=== PATIENT | female | born 1970 | race African-American/Black ===

== ENCOUNTER 2021-04-30 23:02 | Emergency (ER) | payer OTHER ==
[2021-04-30 23:13] VITALS: BP 127/78; PULSE 78; TEMP 98.3; BMI 33.9
[2021-04-30] MEDS ORDERED: morphine CARPU-JECT 4 MG/1 ML DISP.SYRIN IVPUSH ONE (23:36)
[2021-04-30] MEDS ORDERED: ONDANSETRON 4 MG/2 ML VIAL IVPUSH ONE (23:36)
[2021-04-30] MEDS ORDERED: LACTATED RINGERS SOLUTION 1000 ML INFUS.BAG IV ONE (23:36)
[2021-04-30] MEDS ORDERED: morphine SULFATE 4 MG/ML VIAL ONE (23:49)
[2021-04-30] MEDS ORDERED: ONDANSETRON 4 MG/2 ML VIAL ONE (23:50)
[2021-04-30 23:54] LABS: BASO % 0.9 % (0-2.0); EOS % 0.4 % (0-4.5); HEMATOCRIT 40.2 % (32.4-45.2); MCH 32.7 pg (25.7-33.7); MCHC 34.9 g/dl (32.0-36.0); MEAN CELL VOLUME 93.6 fl (80-96); MEAN PLT VOLUME 7.1 fl (7.5-11.1); MONO % 7.8 % (3.8-10.2); NEUT % 69.9 % (42.8-82.8); PLATELET COUNT 350 10^3/uL (134-434); RBC 4.29 M/mm3 (3.60-5.2); RDW 12.9 % (11.6-15.6); WHITE BLOOD COUNT 8.2 K/mm3 (4.0-10.0)
[2021-05-01 00:28] LABS: CALCIUM 8.7 mg/dL (8.5-10.1)
[2021-05-01 00:29] LABS: ALBUMIN 3.5 g/dl (3.4-5.0); BLOOD UREA NITROGEN 14.7 mg/dL (7-18); MAGNESIUM 1.7 mg/dL (1.8-2.4)
[2021-05-01 00:32] LABS: CREATININE 1.1 mg/dL (0.55-1.3)
[2021-05-01 00:33] LABS: BILIRUBIN,TOTAL 0.7 mg/dL (0.2-1); TOT PROT 7.4 g/dl (6.4-8.2)
[2021-05-01] MEDS ORDERED: POTASSIUM CHLORIDE TABS 20 MEQ TABLET.ER (FP) PO ONE ×3 (00:40→01:04)
[2021-05-01] MEDS ORDERED: MAGNESIUM SULF 50% (8.12 MEQ/2 ML-1 GM VIAL) IVPB ONE (00:40)
[2021-05-01] MEDS ORDERED: MAGNESIUM 1GM/D5W - 1 GM/100 ML IVPB IVPB ONE (00:56)
[2021-05-01 01:36] LABS: PH,URINE 7.5 (5.0-8.0); URINE APPEARANCE Clear; URINE BILIRUBIN Negative (NEGATIVE); URINE COLOR Yellow; URINE GLUCOSE (UA) Negative (NEGATIVE); URINE KETONE Trace (NEGATIVE); URINE LEUK ESTERASE Negative (NEGATIVE); URINE NITRITE Negative (NEGATIVE); URINE PROTEIN Negative (NEGATIVE); URINE UROBILINOGEN 0.2 mg/dL (0.2-1.0)
[2021-05-01 01:41] LABS: EPI CELLS 11.2 /uL (0-25.1); HYALINE CASTS 0.25 /uL (0-3.1); URINE BACTERIA 31.6 /uL (0-1359); URINE RBC 22.4 /uL (0-23.9); URINE WBC 17.5 /uL (0-25.8)
[2021-05-01] MEDS ORDERED: morphine CARPU-JECT 4 MG/1 ML DISP.SYRIN IVPUSH ONE (01:42)
[2021-05-01] MEDS ORDERED: LIDOCAINE 5% TOPICAL PATCH TP ONE (01:46)
[2021-05-01] MEDS ORDERED: KETOROLAC TROMETHAMINE 15 MG/ML VIAL IVPUSH ONE (01:46)
[2021-05-01] MEDS ORDERED: LIDOCAINE 5% TOPICAL PATCH ONE (03:06)
[2021-05-01] MEDS ORDERED: LIDOCAINE PATCH REMOVAL MC ONE (14:00)
== END 2021-05-01 03:07 | disposition home or self-care (01) ==
LOC: JER 23:02
PROC: 3E0333Z Introduction of Anti-inflammatory into Peripheral Vein, Percutaneous Approach (ICD-10-PCS; principal; 2021-04-30)
PROC: 3E033GC Introduction of Other Therapeutic Substance into Peripheral Vein, Percutaneous Approach (ICD-10-PCS; 2021-04-30)
PROC: 3E033NZ Introduction of Analgesics, Hypnotics, Sedatives into Peripheral Vein, Percutaneous Approach (ICD-10-PCS; 2021-04-30)
PROC: 3E033NZ Introduction of Analgesics, Hypnotics, Sedatives into Peripheral Vein, Percutaneous Approach (ICD-10-PCS; 2021-04-30)
PROC: 3E033GC Introduction of Other Therapeutic Substance into Peripheral Vein, Percutaneous Approach (ICD-10-PCS; 2021-04-30)
DX: M54.40 Lumbago with sciatica, unspecified side (principal); G89.29 Other chronic pain
CPT/HCPCS: 36415; 74177-TC; 80053; 81003; 83690; 83735; 85025; 87086; 99285-25; Q9967

== ENCOUNTER 2021-06-27 04:39 | Day surgery (SDC) | payer OTHER ==
[2021-06-22 14:36] VITALS: BMI 33.9
[2021-06-27] MEDS ORDERED: LIDOCAINE HCL 1% PRESERVATIVE FREE - 30ML VIAL IJ ONE ×3 (14:53)
[2021-06-27] MEDS ORDERED: IOHEXOL 180 MG/1 ML ML IJ ONE (14:53)
[2021-06-27] MEDS ORDERED: DEXAMETHASONE SOD PHOSPHATE 10 MG/1 ML VIAL IM ONE (14:54)
[2021-06-27 15:53] VITALS: BP 142/73; PULSE 63; TEMP 98
== END 2021-06-27 16:00 | disposition home or self-care (01) ==
LOC: JASU-SURG 04:39
PROVIDERS: ATTEND Pain Medicine Pain Medicine
PROC: 3E0R33Z Introduction of Anti-inflammatory into Spinal Canal, Percutaneous Approach (ICD-10-PCS; 2021-06-27)
PROC: B01BYZZ Fluoroscopy of Spinal Cord using Other Contrast (ICD-10-PCS; 2021-06-27)
PROC: 3E0R3BZ Introduction of Anesthetic Agent into Spinal Canal, Percutaneous Approach (ICD-10-PCS; principal; 2021-06-27 16:00)
DX: M54.16 Radiculopathy, lumbar region (principal); M48.061 Spinal stenosis, lumbar region without neurogenic claudication; I10 Essential (primary) hypertension
CPT/HCPCS: 76000-TC-FY; J1100